=== PATIENT | female | born 1955 | race Caucasian/White ===

== ENCOUNTER 2018-02-28 13:46 | Outpatient (CLI) | payer OTHER ==
--- NOTE | 2018-02-28 15:33 | RAD ---
CHEST 2 VIEWS: HISTORY: A 62-year-old female with a history of GERD, hiatal hernia, acid reflux. COMPARISON: 12/28/2012. FINDINGS: Surgical clips overlie the left anterior superior chest wall region. Evidence for large hiatal herni a. LAP band in place. No significant change from prior exam, 12/28/2012. IMPRESSION: Aretha hiatal hernia/dilated upper gastric pouch above the level of a LAP band, but overall stable from 2013. No new process. POS: OFF
--- NOTE | 2018-02-28 15:40 | BD ---
DEXA BONE DENSITY EXAM: COMPARISON: 05/24/2014. HISTORY: A 62-year-old postmenopausal female for screening. FINDINGS: Lumbar Spine: BMD (g/cm2) L1 0.808 T-Score: -1.7 L2 0.995 T-Score: -0.3 L3 1.048 T-Score: -0.3 L4 1.283 T-Score: 2.0 L1-L4 1.037 T-Score: -0.1 Femoral Neck: 0.724 T-Score: -1.1 Total Femur: 0.909 T-Score: -0.3 Impression: Osteopenia. This patient has a 10-year WHO fracture risk of a major osteoporotic fracture of 15% and of a hip fracture 0.5%. POS: ALYCIA
== END 2018-02-28 13:47 | disposition home or self-care (01) ==
LOC: BICMAMMO 13:46
PROVIDERS: ATTEND Internal Medicine
DX: Z12.31 Encounter for screening mammogram for malignant neoplasm of breast (principal); M85.89 Other specified disorders of bone density and structure, multiple sites; R07.9 Chest pain, unspecified; K44.9 Diaphragmatic hernia without obstruction or gangrene; R92.1 Mammographic calcification found on diagnostic imaging of breast; Z87.19 Personal history of other diseases of the digestive system; Z85.3 Personal history of malignant neoplasm of breast
CPT/HCPCS: 71046; 77063; 77067; 77080

== ENCOUNTER 2018-04-15 01:34 | Outpatient (CLI) | payer OTHER ==
[2018-04-15 17:03] LABS: #Eosinphils 0.1 thou/uL (0.0-0.7); #Lymphocytes 1.9 thou/uL (1.20-3.40); #Monocytes 0.4 thou/uL (0.11-0.59); %Basophils 0.4 % (0.0-1.0); %Eosinophils 2.7 % (0.0-10.0); %Lymphocytes 42.1 % (21.0-51.0); %Monocytes 9.5 % (0.0-10.0); %Neutrophils 45.3 % (42.0-75.0); Hemoglobin 13.2 g/dL (12.0-16.0); Mean Corpuscular HGB CONC 33.1 g/dL (32.0-36.0); Mean Corpuscular Hemoglobin 31.1 pg (27.0-31.0); Mean Platelet Volume 7.9 fL (7.4-10.4); Platelet Count 199 thou/uL (130-400); Red Blood Cell (RBC) Count 4.23 mill/uL (4.20-5.40); White Blood Cell (WBC) Count 4.5 thou/uL (4.8-10.8)
[2018-04-15 17:28] LABS: ALT (SGPT) 14 U/L (8-55); AST (SGOT) 18 U/L (5-34); Albumin 3.7 g/dL (3.4-4.8); Alkaline Phosphatase 47 U/L (40-150); Anion Gap 12 mmol/L (10-20); BUN (Urea Nitrogen) 14 mg/dL (9.8-20.1); Bilirubin, Total 0.4 mg/dL (0.2-1.2); Calc. Creatinine Clearance 0 mL/min (70-130); Calcium 9.4 mg/dL (7.8-10.44); Carbon Dioxide 25 mmol/L (23-31); Chloride 110 mmol/L (98-107); Estimated GFR-MDRD 73; Glucose 99 mg/dL (80-115); Potassium 3.8 mmol/L (3.5-5.1); Protein, Total 6.7 g/dL (6.0-8.3); Sodium 143 mmol/L (136-145)
== END 2018-04-15 01:35 | disposition home or self-care (01) ==
LOC: LABBT 01:34
PROVIDERS: ATTEND Surgery
DX: Z01.818 Encounter for other preprocedural examination (principal); T85.858A Stenosis due to other internal prosthetic devices, implants and grafts, initial encounter
CPT/HCPCS: 80053; 85025; 93005; 93010

== ENCOUNTER 2018-04-18 06:41 | Inpatient (IN) | payer OTHER ==
[2018-04-15 15:46] VITALS: BMI 24.9
[2018-04-18] MEDS ORDERED: Bupivacaine HCl 0.5%/Epinephrine 1:200,000/PF 30 ml Vial ONE (07:58)
[2018-04-18] MEDS ORDERED: Fentanyl 100 MCG/2 ML VIAL ONE ×4 (09:22→13:11)
[2018-04-18] MEDS ORDERED: Glycopyrrolate 0.2 MG/ML 5 ML SYRINGE ONE (11:38)
[2018-04-18] MEDS ORDERED: ePHEDrine 50 MG/ML VIAL ONE (11:38)
[2018-04-18] MEDS ORDERED: Rocuronium Bromide 10 MG/ML (10ML VIAL) ONE (11:38)
[2018-04-18] MEDS ORDERED: Lidocaine 1% PF 5 ML VIAL ONE (11:38)
[2018-04-18] MEDS ORDERED: PHENYLEPHRINE-NS 100 MCG/ML 10 ML SYRINGE ONE (11:38)
[2018-04-18] MEDS ORDERED: PROPOFOL 200 MG/20 ML VIAL ONE (11:38)
[2018-04-18] MEDS ORDERED: Dextrose 5% in Water 1,000 ML IV PRN (11:47)
[2018-04-18] MEDS ORDERED: diphenhydrAMINE 50 MG/ML VIAL IVP PRN (11:47)
[2018-04-18] MEDS ORDERED: Promethazine HCl 25 MG/ML VIAL IM PRN (11:47)
[2018-04-18] MEDS ORDERED: Morphine 2 MG/ML SYRINGE SLOW IVP PRN (11:47)
[2018-04-18] MEDS ORDERED: Ondansetron PF 4 MG/2 ML Vial IVP PRN (11:47)
[2018-04-18] MEDS ORDERED: Dextrose 50% Abboject 50 ML SYRINGE SLOW IVP PRN (11:47)
[2018-04-18] MEDS ORDERED: Morphine 4 MG/ML VIAL SLOW IVP PRN (11:47)
[2018-04-18] MEDS ORDERED: hydrALAZINE 20 MG/ML VIAL SLOW IVP PRN (11:47)
[2018-04-18] MEDS ORDERED: Acetaminophen 1,000 MG in Premix Bag 1 BAG IVPB SCH (12:00)
[2018-04-18] MEDS ORDERED: Sodium Chloride 0.9% (PF) 10 ML VIAL FS PRN (12:01)
[2018-04-18] MEDS ORDERED: D5 1/2 NS w/20 mEq KCL 1,000 ML ONE (12:13)
[2018-04-18] MEDS ORDERED: Ketorolac Tromethamine 30 MG/ML VIAL ONE (12:13)
[2018-04-18] MEDS ORDERED: Ondansetron PF 4 MG/2 ML Vial ONE (12:14)
[2018-04-18] MEDS: Ketorolac Tromethamine 30 MG/ML VIAL IVP SCH ×3 (14:08→23:04)
[2018-04-18] MEDS: CEFAZOLIN 2 GM in Premix Bag 1 BAG IVPB SCH ×2 (14:30→23:03)
[2018-04-18] MEDS: D5 1/2 NS w/20 mEq KCL 1,000 ML IV SCH ×3 (14:34→23:04)
[2018-04-18] MEDS: Acetaminophen 1,000 MG in Premix Bag 1 BAG IVPB SCH (20:00)
[2018-04-19] MEDS: Acetaminophen 1,000 MG in Premix Bag 1 BAG IVPB SCH ×2 (02:51→09:26)
[2018-04-19] MEDS: Ketorolac Tromethamine 30 MG/ML VIAL IVP SCH ×2 (05:37→12:40)
[2018-04-19 06:57] LABS: #Lymphocytes 1.1 thou/uL (1.20-3.40); #Monocytes 0.7 thou/uL (0.11-0.59); #Neutrophils 5.7 thou/uL (1.40-6.50); %Eosinophils 0.1 % (0.0-10.0); %Lymphocytes 14.7 % (21.0-51.0); %Monocytes 9.2 % (0.0-10.0); Hemoglobin 11.3 g/dL (12.0-16.0); Mean Corpuscular HGB CONC 32.5 g/dL (32.0-36.0); Mean Corpuscular Hemoglobin 30.6 pg (27.0-31.0); Mean Corpuscular Volume 94.1 fL (78.0-98.0); Platelet Count 150 thou/uL (130-400); RBC Distribution Width 11.8 % (11.5-14.5); Red Blood Cell (RBC) Count 3.69 mill/uL (4.20-5.40); White Blood Cell (WBC) Count 7.5 thou/uL (4.8-10.8)
[2018-04-19 07:09] LABS: Anion Gap 8 mmol/L (10-20); BUN (Urea Nitrogen) 8 mg/dL (9.8-20.1); Calc. Creatinine Clearance 100 mL/min (70-130); Calcium 8.5 mg/dL (7.8-10.44); Carbon Dioxide 24 mmol/L (23-31); Chloride 109 mmol/L (98-107); Estimated GFR-MDRD 89; Glucose 163 mg/dL (80-115); Potassium 4.1 mmol/L (3.5-5.1); Sodium 137 mmol/L (136-145)
[2018-04-19] MEDS ORDERED: Pantoprazole 40 MG VIAL IVP SCH (09:00)
[2018-04-19] MEDS ORDERED: Enoxaparin Sodium 40 MG/0.4 ML SYRINGE SC SCH (09:00)
--- NOTE | 2018-04-19 09:35 | OP ---
DATE OF PROCEDURE: 04/18/2018 PREOPERATIVE DIAGNOSIS: Band intolerance. PROCEDURES PERFORMED: Laparoscopic removal of band and port with paraesophageal hiatal hernia repair and esophagogastroscopy. INDICATIONS: This is a 62-year-old female who has had repetitive vomiting despite having an empty band. She is unable to tolerate nutrition. FINDINGS: She had a quite a bit of inflammation in a very thick capsule with the band, but her main problem was she had a paraesophageal hiatal hernia that was on the left posterior esophagus. At least a third of her stomach was in the paraesophageal hernia, also probably because of this she had some gastric emptying problems and there was retained solid food within her stomach. DESCRIPTION OF PROCEDURE: After informed consent was obtained, the patient was taken to the operating room and given general endotracheal anesthesia. She was placed in supine position. Her abdomen was prepped and draped in usual fashion. Local anesthesia infiltrated subcutaneously and deep 5 mm incision was performed approximately 8 inches above the xiphoid slightly to the left. Veress needle inserted. Drop test performed. Pneumoperitoneum was created to a volume of 2 L of carbon dioxide. Utilizing a bladeless 5 mm trocar and 0-degree laparoscope direct visual entry, abdominal cavity was performed. Pneumoperitoneum was then created to a pressure of 15 mmHg and the patient placed in steep reverse Trendelenburg position. Mode liver retractor inserted. Left lobe of the liver retracted superiorly. A 5-mm port was placed just to the left of the falciform and a 12-mm port was placed left lateral abdomen by where the port was. The tubing was found and divided just distal to the connecting pin and followed down to the buckle. The buckle was dissected out, unbuckled and the band removed from around the stomach. 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 However, as I incised the capsule, I realized that there was a hernia sac and that the stomach had herniated transhiatally as a paraesophageal hernia on the left side. I was able to get a lot of it reduced, but much of it was still stuck in, so to try and help with defining the anatomy, EGD scope was flexible. The EGD scope was inserted transorally into the stomach and used to help define the anatomy. Then, the crura was defined on the right side. Then, the crura was partially defined on the left side. I took down the short gastrics in order to get posterior and was able to get the remaining stomach reduced as well as part of the hernia sac. Once the entire stomach was reduced, the scope was removed and a 40-[place] bougie was inserted and a posterior crural plication was performed over the bougie with interrupted 0 Ethibond in the Sew-Right and Ti-Knot device. Then, I tethered the stomach to the left lateral abdomen with a 2-0 silk suture tied intracorporeally to try and reduce the recurrence rate. Intraoperative endoscopy was repeated. At this time, the scope was advanced, the stomach insufflated. There was no paraesophageal component. The pylorus was patent, but then the retained food was still in there. The stomach decompressed. Scope removed. There were no air bubbles externally. Then, Tisseel tissue sealant was placed circumferentially around the hiatal opening to try and induce more inflammation. Hemostasis assured. Trocars and retractors removed. The lap band port was then dissected out. The subcu reapproximated with interrupted 3-0 Vicryl. Skin closed with interrupted 4-0 Rapide. Dermabond applied. The patient tolerated the procedure well, transferred to Recovery in good condition. Sponge and needle count verified correct x2. Job ID: [id number]
--- NOTE | 2018-04-19 09:44 | RAD ---
ESOPHAGRAM: HISTORY: Lap-Band removal and hernia repair. FINDINGS: A single-column contrast evaluation shows metallic clips near the GE junction. No significant hiatal hernia apparent with the patient upright. No evidence of obstruction or leak. Upright view shows free intraperitoneal gas. There was decreased motility of the stomach during real -time fluoroscopy. IMPRESSION: 1. Postoperative changes. No evidence of obstruction or leak. 2. Hypoperistalsis of the stomach at the time of the examination. 3. Intraperitoneal gas from recent surgery. POS: ALYCIA
[2018-04-19] MEDS ORDERED: Hydrocodone-Acetamin 15 ML UDCUP PO PRN (10:00)
[2018-04-19] MEDS: D5 1/2 NS w/20 mEq KCL 1,000 ML IV SCH (12:47)
[2018-04-19 15:48] VITALS: BP 104/65; TEMP 97.6
--- NOTE | 2018-04-20 05:07 | DIS ---
DATE OF ADMISSION: 04/18/2018 DATE OF DISCHARGE: 04/19/2018 DISCHARGE DIAGNOSES: 1. Incarcerated paraesophageal hernia with partial obstruction. 2. Dysfunctional lap band. PROCEDURES DURING ADMISSION: Laparoscopic removal of lap band and port, laparoscopic paraesophageal hiatal hernia repair with intraoperative esophagogastroscopy, and postoperative Gastrografin swallow. HOSPITAL COURSE: The patient was admitted, taken to the operating room where she underwent removal of the lap band. During this procedure, she was found to have a massive paraesophageal hiatal hernia, which required repair. This was done intraoperatively with EGD. Postoperatively, she had a swallow. She is doing well. She is tolerating liquids well. Her x-ray was fine. She is now discharged home on a liquid diet for 2 weeks on hydrocodone, liquid, and Zofran oral disintegrating tablet. She will follow up with me in 2 weeks. Job ID: [id number]
== END 2018-04-19 16:26 | disposition home or self-care (01) | DRG 327 ==
LOC: SDC 06:41 → SURG A 11:47
PROVIDERS: ADMIT Surgery; ATTEND Surgery
PROC: 0BQT4ZZ Repair Diaphragm, Percutaneous Endoscopic Approach (ICD-10-PCS; principal; 2018-04-18)
PROC: 0DP64CZ Removal of Extraluminal Device from Stomach, Percutaneous Endoscopic Approach (ICD-10-PCS; 2018-04-18)
PROC: 0DJ08ZZ Inspection of Upper Intestinal Tract, Via Natural or Artificial Opening Endoscopic (ICD-10-PCS; 2018-04-18)
DX: K95.09 Other complications of gastric band procedure (principal); K44.0 Diaphragmatic hernia with obstruction, without gangrene
CPT/HCPCS: 36415; 74241; 80048; 85025; 94760; C9113; J0131; J0670; J1650; J1885; J2405; J3010

== ENCOUNTER 2020-06-30 21:37 | Observation (INO) | payer OTHER ==
[2020-06-30 22:21] LABS: #Lymphocytes 1.8 thou/uL (1.20-3.40); #Monocytes 0.7 thou/uL (0.11-0.59); %Basophils 0.2 % (0.0-1.0); %Eosinophils 0.1 % (0.0-10.0); %Lymphocytes 16.7 % (21.0-51.0); %Monocytes 6.7 % (0.0-10.0); %Neutrophils 76.2 % (42.0-75.0); Hemoglobin 15.1 g/dL (12.0-16.0); Mean Corpuscular HGB CONC 33.8 g/dL (32.0-36.0); Mean Corpuscular Hemoglobin 30.6 pg (27.0-31.0); Mean Corpuscular Volume 90.5 fL (78.0-98.0); Mean Platelet Volume 7.1 fL (7.4-10.4); Platelet Count 248 thou/uL (130-400); RBC Distribution Width 11.4 % (11.5-14.5); Red Blood Cell (RBC) Count 4.94 mill/uL (4.20-5.40); White Blood Cell (WBC) Count 10.5 thou/uL (4.8-10.8)
[2020-06-30 22:48] LABS: ALT (SGPT) 19 U/L (8-55); AST (SGOT) 18 U/L (5-34); Albumin 4.3 g/dL (3.4-4.8); Alkaline Phosphatase 88 U/L (40-110); Anion Gap 15 mmol/L (10-20); BUN (Urea Nitrogen) 10 mg/dL (9.8-20.1); Calc. Creatinine Clearance 0 mL/min (70-130); Calcium 9.3 mg/dL (7.8-10.44); Carbon Dioxide 18 mmol/L (23-31); Chloride 98 mmol/L (98-107); Globulin 3.7 g/dL (2.4-3.5); Glucose 118 mg/dL (80-115); Lipase 17 U/L (8-78); Potassium 3.8 mmol/L (3.5-5.1); Sodium 127 mmol/L (136-145)
[2020-06-30] MEDS ORDERED: Ketorolac Tromethamine 30 MG/ML VIAL ONE (22:53)
[2020-06-30] MEDS ORDERED: Ondansetron PF 4 MG/2 ML Vial ONE (22:53)
[2020-06-30 23:48] LABS: Bacteria/HPF None Seen HPF (None Seen); Bilirubin Negative (Negative); Blood, Urine 2+ (Negative); Clarity Clear (Clear); Glucose, Urine (Dipstick) Normal (Negative); Ketone, Urine 80 mg/dL (Negative); Leukocyte 250 Leu/uL (Negative); Nitrite Negative (Negative); Protein, Urine (Dipstick) 30 mg/dL (Neg-Trace); RBC/HPF 21-50 HPF (0-3); Specific Gravity, Urine 1.039 (1.002-1.036); Urobilinogen Normal mg/dL (Less than 2)
[2020-07-01] MEDS ORDERED: Piperacillin/Tazobactam 4.5 GM VIAL ONE (00:17)
[2020-07-01] MEDS ORDERED: Morphine 4 MG/ML VIAL SLOW IVP PRN ×2 (00:58→01:13)
[2020-07-01 01:30] VITALS: BMI 34.5
[2020-07-01 01:50] LABS: #Lymphocytes 1.7 thou/uL (1.20-3.40); #Monocytes 0.7 thou/uL (0.11-0.59); #Neutrophils 7.9 thou/uL (1.40-6.50); %Basophils 0.2 % (0.0-1.0); %Eosinophils 0.2 % (0.0-10.0); %Lymphocytes 16.1 % (21.0-51.0); %Monocytes 6.4 % (0.0-10.0); %Neutrophils 77.1 % (42.0-75.0); Hemoglobin 14.5 g/dL (12.0-16.0); Mean Corpuscular HGB CONC 33.4 g/dL (32.0-36.0); Mean Corpuscular Hemoglobin 30.3 pg (27.0-31.0); Mean Corpuscular Volume 90.7 fL (78.0-98.0); Platelet Count 216 thou/uL (130-400); RBC Distribution Width 11.4 % (11.5-14.5); White Blood Cell (WBC) Count 10.2 thou/uL (4.8-10.8)
[2020-07-01 02:08] LABS: AST (SGOT) 17 U/L (5-34); Alkaline Phosphatase 81 U/L (40-110); Anion Gap 15 mmol/L (10-20); BUN (Urea Nitrogen) 8 mg/dL (9.8-20.1); Bilirubin, Total 1.1 mg/dL (0.2-1.2); Calc. Creatinine Clearance 134 mL/min (70-130); Carbon Dioxide 19 mmol/L (23-31); Chloride 101 mmol/L (98-107); Globulin 3.3 g/dL (2.4-3.5); Glucose 119 mg/dL (80-115); Potassium 3.6 mmol/L (3.5-5.1); Protein, Total 7.3 g/dL (5.8-8.1); Sodium 131 mmol/L (136-145)
[2020-07-01] MEDS: Pantoprazole 40 MG VIAL IVP SCH ×2 (02:27→15:19)
[2020-07-01] MEDS: Sodium Chloride 0.9% 1,000 ML IV SCH ×2 (02:27→07:51)
[2020-07-01] MEDS: Piperacillin/Tazobactam 3.375 GM in Sodium Chloride 0.9% 100 ML IVPB SCH ×3 (02:27→15:25)
[2020-07-01 03:16] LABS: ALT (SGPT) 16 U/L (8-55)
[2020-07-01] MEDS ORDERED: Fentanyl 100 MCG/2 ML VIAL ONE (06:18)
[2020-07-01] MEDS ORDERED: Bupivacaine 0.25% HCL 30 ML VIAL ONE (06:26)
[2020-07-01] MEDS ORDERED: Lidocaine 1% w/Epinephrine 1:100K 20 ML VIAL ONE (06:26)
[2020-07-01 06:37] LABS: SARS-CoV-2 NAA Rapid Test Not Detected (NotDetected)
[2020-07-01] MEDS ORDERED: Piperacillin/Tazobactam 3.375 GM VIAL ONE (07:28)
[2020-07-01] MEDS ORDERED: Sodium Chloride 0.9% 100 ML ONE (07:28)
[2020-07-01] MEDS ORDERED: Ketorolac Tromethamine 30 MG/ML VIAL ONE (07:40)
[2020-07-01] MEDS ORDERED: Ondansetron PF 4 MG/2 ML Vial ONE (07:40)
[2020-07-01] MEDS ORDERED: Glycopyrrolate 0.2 MG/ML 5 ML SYRINGE ONE (07:40)
[2020-07-01] MEDS ORDERED: Succinylcholine 200 MG/10 ml SYRINGE FS ONE (07:40)
[2020-07-01] MEDS ORDERED: PHENYLEPHRINE-NS 100 MCG/ML 10 ML SYRINGE ONE (07:40)
[2020-07-01] MEDS ORDERED: Dexamethasone 20 MG/5 ML VIAL ONE (07:40)
[2020-07-01] MEDS ORDERED: Rocuronium Bromide 10 MG/ML (10ML VIAL) ONE (07:40)
[2020-07-01] MEDS ORDERED: PROPOFOL 200 MG/20 ML VIAL ONE (07:40)
[2020-07-01] MEDS ORDERED: Lidocaine 1% PF 5 ML VIAL ONE (07:40)
[2020-07-01] MEDS ORDERED: Promethazine HCl 25 MG/ML VIAL SLOW IVP PRN (08:45)
[2020-07-01] MEDS ORDERED: Ondansetron HCl/PF 4 MG/2 ML Vial IVP PRN (08:45)
[2020-07-01] MEDS ORDERED: Promethazine HCl 25 MG/ML VIAL IM PRN (08:45)
[2020-07-01] MEDS ORDERED: Ibuprofen 200 MG TAB PO PRN ×2 (10:35)
[2020-07-01] MEDS ORDERED: HYDROcodone/Acetaminophen 5/325 mg Tablet PO PRN ×2 (10:35)
[2020-07-01] MEDS ORDERED: Acetaminophen 325 MG TAB PO PRN ×2 (10:35)
[2020-07-01] MEDS ORDERED: Ibuprofen 600 MG TAB PO PRN (10:35)
[2020-07-01] MEDS ORDERED: traMADol HCl 50 MG TAB PO PRN ×2 (10:35)
[2020-07-01 16:36] VITALS: BP 122/76; TEMP 97.8
== END 2020-07-01 16:48 | disposition home or self-care (01) ==
LOC: ERS 21:37 → SURG A 07-01 00:11 → INTOOBSV 07-01 00:11
PROVIDERS: ADMIT Surgery; ATTEND Surgery
PROC: 0FT44ZZ Resection of Gallbladder, Percutaneous Endoscopic Approach (ICD-10-PCS; principal; 2020-07-01)
DX: K80.13 Calculus of gallbladder with acute and chronic cholecystitis with obstruction (principal); E03.9 Hypothyroidism, unspecified; G43.909 Migraine, unspecified, not intractable, without status migrainosus; K44.9 Diaphragmatic hernia without obstruction or gangrene; Z85.3 Personal history of malignant neoplasm of breast; Z79.899 Other long term (current) drug therapy; Z20.822 Contact with and (suspected) exposure to COVID-19
CPT/HCPCS: 36415; 74177; 80053; 81003; 81015; 83690; 84484; 85025; 88304; 93005; 96365; 96375; 96376; C9113; G0378; J1100; J1885; J2270; J2405; J2543; J2704; J3010; J3490; S0020; U0002